=== PATIENT | male | born 1975 | race Two or more races ===

== ENCOUNTER 2023-08-10 09:51 | Emergency (ER) | payer OTHER ==
[~2023-08-10] VITALS: Ht 185.4 cm; Wt 104.3 kg
[2023-08-10 11:27] LABS: HEMATOCRIT 45.7 % (39.0-48.0); MEAN CELL VOLUME 88.6 fL (80.0-100.00); PLATELET COUNT 245 K/uL (150-450); RED BLOOD COUNT 5.16 M/uL (4.00-6.00)
[2023-08-10 12:13] LABS: URINE APPEARANCE Cloudy; URINE BILIRRUBIN Moderate (NEGATIVE); URINE BLOOD Moderate; URINE COLOR Dark Yellow; URINE LEUKOCYTE Trace; URINE NITRATE Negative
[2023-08-10 12:17] LABS: URINE BACTERIA 30.2 uL (0.0-1933); URINE EPITHELIAL CELLS 41.7 uL (0.0-38.8); URINE RBC 99.4 uL (0.0-20.8); URINE WBC 14.9 uL (0.0-23.2)
[2023-08-10 12:51] LABS: URINE GLUCOSE 100 MG/DL (NEGATIVE); URINE PROTEIN 300 (NEGATIVE)
[2023-08-10 13:08] LABS: POTASSIUM 4.08 mEq/L (3.5-5.1)
[2023-08-10 13:14] LABS: CALCIUM 9.2 mg/dL (8.5-10.1); CREATININE SERUM 1.04 mg/dL (0.70-1.30); GFR 76.88
== END 2023-08-10 15:04 | disposition home or self-care (01) ==
LOC: EDBD 09:51 → ER 09:51
PROVIDERS: General Practice
DX: K52.89 Other specified noninfective gastroenteritis and colitis (principal); E11.65 Type 2 diabetes mellitus with hyperglycemia; E88.810 Metabolic syndrome; E78.00 Pure hypercholesterolemia, unspecified; I10 Essential (primary) hypertension; Z20.822 Contact with and (suspected) exposure to COVID-19